=== PATIENT | female | born 1995 | race Caucasian/White ===

== ENCOUNTER 2020-11-22 11:40 | Emergency (ER) | payer OTHER ==
[~2020-11-22] VITALS: Ht 165.1 cm; Wt 65.8 kg
== END 2020-11-22 13:54 | disposition home or self-care (01) ==
LOC: ER 11:40
DX: G43.809 Other migraine, not intractable, without status migrainosus (principal); Z03.818 Encounter for observation for suspected exposure to other biological agents ruled out